=== PATIENT | female | born 1965 | race Caucasian/White ===

== ENCOUNTER → 2016-10-18 | Day surgery (SDC) | payer OTHER | END | disposition home or self-care (01) | LOC: SDC 11:30 | DX: N32.9 Bladder disorder, unspecified (principal); N31.9 Neuromuscular dysfunction of bladder, unspecified; N39.41 Urge incontinence; T83.719A Erosion of other prosthetic materials to surrounding organ or tissue, initial encounter; N30.00 Acute cystitis without hematuria | CPT/HCPCS: C1758; J0585; J0696; J1885; J2704; L8606; Q9967 ==